=== PATIENT | female | born 1960 | race Caucasian/White ===

== ENCOUNTER 2017-09-12 08:21 | Inpatient (IN) | payer MEDICARE, OTHER ==
[2017-09-12] MEDS ORDERED: 0.9 % SODIUM CHLORIDE 1,000 ML BAG IV ONE ×2 (08:25→09:17)
[2017-09-12] MEDS ORDERED: ONDANSETRON HCL IV 4 MG/2 ML VIAL IVP ONE ×3 (08:31→17:10)
[2017-09-12] MEDS ORDERED: LORAZEPAM 2 MG/ML VIAL IV ONE ×2 (08:31→09:43)
--- NOTE | 2017-09-12 08:31 | Emergency Department Record ---
History of Present Illness - General Stated Complaint: CONSTIPATION Time Seen by Provider: 09/12/17 08:24 Source: Patient, Family Mode of Arrival: Ambulatory Limitations: No limitations - History of Present Illness Initial Comments: 57 yo female presents with a concern about constipation for 2 days, she has rectal pressure and unable to urinate due to the symptoms. She states she has not had significant constipation in the past. Past surgical history included hysterectomy. Prior colonoscopy in the past was normal. No other acute changes recently in her health. She is on disability for anxiety currently. MD Complaint: Abdominal pain (constipation, no bowel movement 2 days) -: Days(s) (2) Location: Other (Rectal pressure) Radiation: Other (rectal lower abdomen) Severity: Severe Quality: Cramping Consistency: Constant Improves With: Nothing Worsens With: Nothing Context: Other Associated Symptoms: Denies other symptoms - Related Data Home Medications Medication Instructions Recorded Confirmed Last Taken Fluoxetine HCl [Prozac] 60 mg PO DAILY 09/12/17 09/12/17 1 Day Ago ~09/11/17 Lorazepam [Ativan] 1 - 2 mg PO PRN 09/12/17 Unknown Ondansetron HCl [Zofran] 8 mg PO ASDIR PRN 09/12/17 09/12/17 Unknown Allergies Allergy/AdvReac Type Severity Reaction Status Date / Time No Known Drug Allergies Allergy Verified 09/12/17 12:03 Review of Systems Constitutional: Denies: Chills, Fever, Malaise, Weakness Eyes: Denies: Eye discharge ENT: Denies: Congestion, Throat pain Respiratory: Denies: Cough Cardiovascular: Denies: Chest pain, Syncope Endocrine: Denies: Fatigue Gastrointestinal: Reports: Abdominal pain, Constipation. Denies: Hematemesis, Hematochezia, Nausea Genitourinary: Reports: Retention. Denies: Dysuria, Urgency Musculoskeletal: Denies: Arthralgia, Back pain, Joint swelling, Myalgia Skin: Denies: Bruising, Change in color, Rash Neurological: Denies: Confusion Psychiatric: Denies: Anxiety, Depression Hematological/Lymphatic: Denies: Blood Clots, Easy bleeding, Easy bruising, Swollen glands Physical Exam - General General Appearance: Alert, Oriented x3, Cooperative, No acute distress, Anxious (very anxious due to unable to void or bowel movement) Limitations: No limitations - Head Head exam: Atraumatic, Normal inspection - Eye Eye exam: Normal appearance. negative: Conjunctival injection - ENT ENT exam: Normal exam, Mucous membranes moist Ear exam: Normal external inspection Nasal Exam: Normal inspection Mouth exam: Normal external inspection Teeth exam: Normal inspection - Neck Neck exam: Normal inspection - Respiratory Respiratory exam: Normal lung sounds bilaterally. negative: Respiratory distress - Cardiovascular Cardiovascular Exam: Regular rate, Normal rhythm, Normal heart sounds - GI/Abdominal GI/Abdominal exam: Soft. negative: Tenderness - Rectal Rectal exam: Fecal impaction (copious soft stool), Heme (-) stool, Hemorrhoids ( no bleeding), Normal rectal tone. negative: Black stool, Bloody stool, Decreased rectal tone, Heme (+) stool, Mass, Normal inspection - exam: Deferred - Extremities Extremities exam: Normal inspection, Full ROM, Normal capillary refill. negative: Tenderness - Back Back exam: Reports: Normal inspection, Full ROM. Denies: Muscle spasm, Rash noted, Tenderness - Neurological Neurological exam: Alert, Normal gait, Oriented X3. negative: Altered - Psychiatric Psychiatric exam: Agitated, Anxious - Skin Skin exam: Dry, Intact, Normal color, Warm Course - Reevaluation(s) Reevaluation #1: Due to pain and unable to urinate or have a bowel movement the patient is very anxious, tearful. She admits to significant history of anxiety. 09/12/17 08:30 She reports the symptoms were mild yesterday and much worse this morning unable to urinate or have a bowel movement. No blood. No fevers. No vomiting. 09/12/17 09:10 The mott was placed and is draining CT ordered given her level of pain, this being the first time this has happen, and the urinary retention. I explained this to the patient and her . 09/12/17 09:35 09/12/17 10:10 The UA and Lipase are negative 09/12/17 11:[address] scan was reviewed. Stool in the colon causing rectal distention with colon wall thickening and possible small amount of air in the colon wall representing a stercoral colitis. No signs of obstruction. Given the inflamed colon no enema will be given. She will be given PO Magnesium Citrate with Dulcolax Tab after discussion with GI. 09/12/17 11:28 09/12/17 12:16 It has been about one hour. No urge for bowel movement but she still has intense rectal pressure. I attempted to perform a digital dis impaction. She did not tolerate even a minimal examination due to pain refusing further attempts. 09/12/17 12:46 No BM at this point. GI recommends GoLytely. Will also give her lidocaine topical for anal pain. She will be admitted observation until she has bowel movements. She will be monitored for fever, vomiting, elevated WBC count. 09/12/17 13:24 I PERRI Franz of the admission service, we discussed the CT and plan for supportive care until BM and improved. 09/12/17 13:28 At the time of admission the abdomen is very soft. No acute abdomen findings. Her pain is lower. The lidocaine gel helped with the discomfort at the anus Medical Decision Making - Lab Data Result diagrams: 09/12/17 08:30 09/12/17 08:30 Disposition Disposition: Admit Clinical Impression: Urinary retention, Stercoral ulcer of rectum Constipation Qualifiers: Constipation type: unspecified constipation type Qualified Code(s): K59.00 - Constipation, unspecified Disposition: Still a Patient at [facility] Decision to Admit: Admit from ER Decision to Admit Date: 09/12/17 Decision to Admit Time: 12:48 Condition: (2) Stable Time of Disposition: 12:48 Quality - Quality Measures Quality Measures: N/A - Blood Pressure Screening Does Patient Have Any of the Following: No Blood Pressure Classification: Hypertensive Reading Systolic Measurement: 146 Diastolic Measurement: 118 Screening for High Blood Pressure: < Pre-Hypertensive BP, F/U Documented > [ G8950] Pre-Hypertensive Follow-up Interventions: Referral to alternative/primary care provider.
[2017-09-12 08:39] LABS: BASO % 0.3 % (0-6); EOS % 1.3 % (0-6); GRAN % 70.1 % (47-80); HEMATOCRIT 42.9 % (35.0-47.0); HEMOGLOBIN 14.3 gm/dl (11.6-16.0); LYMPH % 24.1 % (16-45); MEAN CELL VOLUME 88.3 fl (81-97); MEAN CORPUSCULAR HEMOGLOBIN 29.4 pg (27-33); MEAN CORPUSCULAR HGB CONC 33.3 g/dl (32-36); MEAN PLATELET VOLUME 9.9 fl (7.4-10.4); MONO % 4.2 % (0-9); PLATELET COUNT 389 K/uL (130-400); RED BLOOD COUNT 4.86 M/uL (3.80-5.40); RED CELL DISTRIBUTION WIDTH 13.9 % (11.5-14.5); WHITE BLOOD COUNT W/O DIFF 12.4 K/uL (4.2-12.2)
[2017-09-12 08:55] LABS: BLOOD UREA NITROGEN 18 mg/dL (6-20); CREATININE 0.7 mg/dL (0.5-0.9); EST GLOMERULAR FILTRATION RATE > 60 mL/min
[2017-09-12 08:58] LABS: GLUCOSE,RANDOM 164 mg/dL (74-109)
[2017-09-12 09:03] LABS: INR 0.94; PARTIAL THROMBOPLASTIN TIME 23.8 SECONDS (24.5-39.1); PROTHROMBIN TIME (PATIENT) 10.1 SECONDS (9.5-12.1)
[2017-09-12] MEDS ORDERED: FENTANYL PF 100MCG/2ML VIAL IVP ONE (09:17)
[2017-09-12 09:28] LABS: URINE APPEARANCE CLEAR; URINE BILIRUBIN NEGATIVE (NEGATIVE); URINE BLOOD SMALL (NEGATIVE); URINE COLOR YELLOW; URINE GLUCOSE (UA) NEGATIVE (NEGATIVE); URINE KETONE TRACE (NEGATIVE); URINE LEUKOCYTE ESTERASE NEGATIVE (NEGATIVE); URINE NITRITE NEGATIVE (NEGATIVE); URINE PROTEIN NEGATIVE (NEGATIVE); URINE UROBILINOGEN 0.2 E.U./dL (0.20 - 1.00)
[2017-09-12 09:37] LABS: URINE WBC NONE SEEN (0-2/hpf)
[2017-09-12] MEDS ORDERED: BISACODYL 5 MG TABLET PO ONE (11:04)
[2017-09-12] MEDS ORDERED: MAGNESIUM CITRATE 296 ML BTL PO ONE (11:04)
[2017-09-12] MEDS ORDERED: 0.9 % SODIUM CHLORIDE 1000ML 1,000 ML IV ONE (12:21)
[2017-09-12] MEDS ORDERED: LIDOCAINE UROJECT 10 ML APPL MM ONE (12:46)
[2017-09-12] MEDS ORDERED: 0.9 % SODIUM CHLORIDE 1000ML 1,000 ML IV PRN (14:39)
[2017-09-12] MEDS ORDERED: ACETAMINOPHEN 1,000 MG/100 ML BTL IVPB ONE (14:39)
[2017-09-12] MEDS ORDERED: SODSULF/SOD/NAHCO3/KCL/PEG (GOLYTELY) 4000 ML BTL PO STA (14:39)
[2017-09-12] MEDS ORDERED: LORAZEPAM 2 MG/ML VIAL IV PRN (14:39)
[2017-09-12] MEDS ORDERED: LIDOCAINE UROJECT 10 ML APPL MM PRN (14:39)
[2017-09-12 15:10] LABS: HEMOGLOBIN 12.5 gm/dl (11.6-16.0); MEAN CELL VOLUME 89.2 fl (81-97); MEAN CORPUSCULAR HEMOGLOBIN 29.3 pg (27-33); MEAN CORPUSCULAR HGB CONC 32.9 g/dl (32-36); MEAN PLATELET VOLUME 9.9 fl (7.4-10.4); PLATELET COUNT 298 K/uL (130-400); RED BLOOD COUNT 4.26 M/uL (3.80-5.40); RED CELL DISTRIBUTION WIDTH 13.8 % (11.5-14.5); WHITE BLOOD COUNT W/O DIFF 17.2 K/uL (4.2-12.2)
[2017-09-12 15:28] LABS: PLATELET ESTIMATE NORMAL (NORMAL)
--- NOTE | 2017-09-12 15:32 | History & Physical ---
History of Present Illness - Date of Service Date of Service for History & Physical: 09/12/17 - History of Present Illness History of Present Illness: Mrs. Reyes is a 57 year-old female who presented to the ED with concern of constipation for 2 days. She has rectal pain and pressure and she has been unable to urinate today due to her symptoms. She denies blood, fevers, and vomiting. She states that she normally has a daily bm and she has no history of similar symptoms or constipation. Past surgical history included hysterectomy and hemorrhoidectomy. Prior colonoscopy in the past was normal. No other acute changes recently in her health. She is on disability for anxiety currently. In ED, pt. was very anxious and tearful due to inability to urinate or have a bowel movement. A UA was obtained and negative. Lipase was negative. A mott was placed and draining well. Abdominal CT showed stool in the colon causing rectal distention with colon wall thickening and possible small amount of air in the colon wall representing a stercoral colitis. No signs of obstruction. Dr. Sheppard consulted with GI and and began PO magnesium citrate and dulcolax. A rectal exam was attempted but was too painful for the patient. GI recommended GoLytely. She was admitted for observation until she has bowel movements. She will be monitored for fever, vomiting, elevated WBC count. 09/12/17 1600: Pt. just got back in bed after having a small bowel movement of loose stool. She states that her pain is worsening and mainly in her lower abdomen and rectal area. She also states that the pain is making her anxiety worse. Plan to continue golytely, monitor lab results, and consult GI regarding worsening abdominal pain. Travel Screening - Travel/Exposure Within Last 30 Days Have you traveled within the last 30 days?: No - Additonal Travel Details Have you been exposed to anyone with a communicable illness?: No - Travel Symptoms Symptom Screening: None Review of Systems Constitutional: Denies: Chills, Fever, Malaise, Weakness Eyes: Denies: Eye discharge ENT: Denies: Congestion, Throat pain Respiratory: Denies: Cough Cardiovascular: Denies: Chest pain, Syncope Endocrine: Denies: Fatigue Gastrointestinal: Reports: Abdominal pain, Constipation, Other (Rectal pain). Denies: Hematemesis, Hematochezia, Nausea Genitourinary: Reports: Retention. Denies: Dysuria, Urgency Musculoskeletal: Denies: Arthralgia, Back pain, Joint swelling, Myalgia Skin: Denies: Bruising, Change in color, Rash Neurological: Denies: Confusion Psychiatric: Reports: Anxiety. Denies: Depression Hematological/Lymphatic: Denies: Blood Clots, Easy bleeding, Easy bruising, Swollen glands Past Medical History - SOCIAL HISTORY Smoking Status: Never smoker Alcohol Use: Rare Drug Use: None - RESPIRATORY Hx Respiratory Disorders: No - CARDIOVASCULAR Hx Cardio Disorders: No - NEURO Hx Neuro Disorders: No - GI Hx GI Disorders: Yes Hx Reflux: Yes Comment:: Hx hemorrhoidectomy - Hx Genitourinary Disorders: No - ENDOCRINE Hx Endocrine Disorders: No Hx Diabetes: No - MUSCULOSKELETAL Hx Musculoskeletal Disorders: No - PSYCH Hx Psych Problems: Yes Hx Anxiety: Yes - HEMATOLOGY/ONCOLOGY Hx Hematology/Oncology Disorders: No Family Medical History Any Significant Family History?: No H&P Meds/Allergies - Allergies Allergies: Allergies Allergy/AdvReac Type Severity Reaction Status Date / Time No Known Drug Allergies Allergy Verified 09/12/17 12:03 - Home Medications Home Medications Medication Instructions Recorded Confirmed Last Taken Fluoxetine HCl [Prozac] 60 mg PO DAILY 09/12/17 09/12/17 1 Day Ago ~09/11/17 Lorazepam [Ativan] 1 - 2 mg PO PRN 09/12/17 Unknown Ondansetron HCl [Zofran] 8 mg PO ASDIR PRN 09/12/17 09/12/17 Unknown - Active Medications Active Medications: Current Medications Sodium Chloride () 1,000 mls @ 125 mls/hr IV .Q8H PRN PRN Reason: LARGE VOLUME IV Last Admin: 09/12/17 15:26 Dose: 125 mls/hr Lidocaine HCl (Urojet) 10 ml MM Q6H PRN PRN Reason: Analgesia Lorazepam (Ativan) 1 mg IV Q8H PRN PRN Reason: ANXIETY Physical Exam - Vital Signs Vital Signs: Vital Signs - Last 24 Hrs Temp Pulse Resp BP Pulse Ox 09/12/17 14:51 99.2 F 75 20 146/79 96 - General General Appearance: Alert, Oriented x3, Cooperative, Moderate distress, Anxious (very anxious due to unable to void or bowel movement) Limitations: No limitations - Head Head exam: Atraumatic, Normal inspection - Eye Eye exam: Normal appearance. negative: Conjunctival injection - ENT ENT exam: Normal exam, Mucous membranes moist Ear exam: Normal external inspection Nasal Exam: Normal inspection Mouth exam: Normal external inspection Teeth exam: Normal inspection - Neck Neck exam: Normal inspection - Respiratory Respiratory exam: Normal lung sounds bilaterally. negative: Respiratory distress - Cardiovascular Cardiovascular Exam: Regular rate, Normal rhythm, Normal heart sounds - GI/Abdominal GI/Abdominal exam: Soft, Normal bowel sounds, Tenderness (with light palpation, worse in lower abdomen) - Rectal Rectal exam: Deferred. negative: Black stool, Bloody stool, Decreased rectal tone, Heme (+) stool, Mass, Normal inspection - exam: Deferred - Extremities Extremities exam: Normal inspection, Full ROM, Normal capillary refill. negative: Tenderness - Back Back exam: Reports: Normal inspection, Full ROM. Denies: Muscle spasm, Rash noted, Tenderness - Neurological Neurological exam: Alert, Normal gait, Oriented X3. negative: Altered - Psychiatric Psychiatric exam: Agitated, Anxious - Skin Skin exam: Dry, Intact, Normal color, Warm Results - Labs Result Diagrams: 09/12/17 14:52 09/12/17 14:52 Labs Last 24 Hours: Laboratory Results - last 24 hr 09/12/17 14:52 WBC 17.2 H RBC 4.26 Hgb 12.5 Hct 38.0 MCV 89.2 MCH 29.3 MCHC 32.9 RDW 13.8 Plt Count 298 MPV 9.9 Neutrophils % 90.0 H Band Neutrophils % 1.0 Eosinophils % Not Reportable Basophils % Not Reportable Lymphocytes 6.0 L Monocytes 2.0 Platelet Estimate Normal RBC Morphology Normal Eosinophil Count 1.0 VTE H&P Assessment - Risk for VTE Risk for VTE: No Risk Level: Very Low Risk Assessment Date: 09/12/17 Risk Assessment Time: 18:43 VTE Orders Placed or Will Be Placed: No VTE Reason for No Prophylaxis: Treatment Not Tolerated Plan - Inpatient Certification Inpatient Certification: Admit to inpatient care: Based on my medical assessment, after consideration of patient's risk factors (age, co-morbidities and patient presenting symptoms and acuity), I expect that this patient will remain in the hospital greater than or equal to two midnights and that the services needed warrant inpatient care because: Patient Risk Factors: [] Estimated length of stay: [] The patient may reasonably be expected to be discharged or transferred to a hospital within 96 hours after admission to [facility]. Services needed: [pain management, lab monitoring, monitoring of condition for possible acute bowel perforation] Post hospital care (if known): [] I certify that my determination is in accordance with my understanding of Medicare requirements for reasonable and necessary inpatient services. 09/12/17 18:18 - Detailed Diagnosis and Plan (1) Constipation Current Visit: Yes Status: Acute Qualifiers: Constipation type: unspecified constipation type Qualified Code(s): K59.00 - Constipation, unspecified Base Code: K59.00 - CONSTIPATION, UNSPECIFIED Comment: 09/12/17 1600: Pt. presented to ED on 09/12 with severe lower abd. pain and rectal pain after not having a bm in [address] showed dilated rectum with stool present. General surgery consulted by Dr. Sheppard. Planning conservative treatment. Mag citrate 150ml and dulcolax 5mg given. Ofirmev 1000mg IV and Lidocaine urojet used topically for anal pain. Golytely started. Pt. has has small amt. of liquid stool. Plan to continue golytely until substansial bowel movement. (2) Anxiety Current Visit: Yes Status: Acute Base Code: F41.9 - ANXIETY DISORDER, UNSPECIFIED Comment: 09/12/17 1600: Pt. has history of anxiety and normally takes prozac and ativan. Anxiety currently elevated secondary to pain of constipation condition. Plan to continue ativan 1mg prn tid. (3) Urinary retention Current Visit: Yes Status: Acute Base Code: R33.9 - RETENTION OF URINE, UNSPECIFIED Comment: 09/12/17: Pt. was unable to void upon presentation to ED. Mott catheter placed and remains patent. (4) Full code status Current Visit: Yes Status: Acute Base Code: Z78.9 - OTHER SPECIFIED HEALTH STATUS Comment: 09/12/17: Pt. is full code status
[2017-09-12 16:46] LABS: ALB/GLOB RATIO 1.5 (1.1-1.8); ALKALINE PHOSPHATASE 103 U/L (35-104); ALT/SGPT 14 U/L (<33); AST/SGOT 18 U/L (10.0-35.0); BLOOD UREA NITROGEN 12 mg/dL (6-20); CREATININE 0.6 mg/dL (0.5-0.9); EST GLOMERULAR FILTRATION RATE > 60 mL/min; GLUCOSE,RANDOM 113 mg/dL (74-109); TOTAL PROTEIN 6.7 g/dL (6.6-8.7)
--- NOTE | 2017-09-12 18:55 | Discharge Summary ---
Providers Date of admission: 09/12/17 14:31 Attending physician: Riccardo Abraham Primary care physician: TALON HOUSE D.O. Physical Exam - Vital Signs Vital Signs: Vital Signs - Last 24 Hrs Temp Pulse Resp BP Pulse Ox 09/12/17 14:51 99.2 F 75 20 146/79 96 - General General Appearance: Alert, Oriented x3, Cooperative, Moderate distress, Anxious (very anxious due to unable to void or bowel movement) Limitations: No limitations - Head Head exam: Atraumatic, Normal inspection - Eye Eye exam: Normal appearance. negative: Conjunctival injection - ENT ENT exam: Normal exam, Mucous membranes moist Ear exam: Normal external inspection Nasal Exam: Normal inspection Mouth exam: Normal external inspection Teeth exam: Normal inspection - Neck Neck exam: Normal inspection - Respiratory Respiratory exam: Normal lung sounds bilaterally. negative: Respiratory distress - Cardiovascular Cardiovascular Exam: Regular rate, Normal rhythm, Normal heart sounds - GI/Abdominal GI/Abdominal exam: Soft, Normal bowel sounds, Tenderness (with light palpation, worse in lower abdomen) - Rectal Rectal exam: Deferred. negative: Black stool, Bloody stool, Decreased rectal tone, Heme (+) stool, Mass, Normal inspection - exam: Deferred - Extremities Extremities exam: Normal inspection, Full ROM, Normal capillary refill. negative: Tenderness - Back Back exam: Reports: Normal inspection, Full ROM. Denies: Muscle spasm, Rash noted, Tenderness - Neurological Neurological exam: Alert, Normal gait, Oriented X3. negative: Altered - Psychiatric Psychiatric exam: Agitated, Anxious - Skin Skin exam: Dry, Intact, Normal color, Warm Hospitalization - Hospitalization Admission Diagnosis: Constipation, urinary retention, anxiety - Problem List/Discharge Diagnosis (1) Constipation Current Visit: Yes Status: Acute Discharge Diagnosis: Constipation type: unspecified constipation type Qualified Code(s): K59.00 - Constipation, unspecified Base Code: K59.00 - CONSTIPATION, UNSPECIFIED Comment: 09/12/17 1730: WBC increased from 12.4 to 17.2 and pt. temp now 99.2F (after ofirmev 1000mg). Per Dr. Sheppard, pt.'s abdomen was nontender in ED. Pt. now has increased abd. tenderness with palpation, worse in lower abdomen. General surgery consulted and plan to transfer to [facility]. Dr. Schilling will accept care and monitor for possible need of surgical intervention. (2) Anxiety Current Visit: Yes Status: Acute Base Code: F41.9 - ANXIETY DISORDER, UNSPECIFIED Comment: 09/12/17 1600: Pt. has history of anxiety and normally takes prozac and ativan. Anxiety currently elevated secondary to pain of constipation condition. Plan to continue ativan 1mg prn tid. (3) Urinary retention Current Visit: Yes Status: Acute Base Code: R33.9 - RETENTION OF URINE, UNSPECIFIED Comment: 09/12/17: Pt. was unable to void upon presentation to ED. Mott catheter placed and remains patent. (4) Full code status Current Visit: Yes Status: Acute Base Code: Z78.9 - OTHER SPECIFIED HEALTH STATUS Comment: 09/12/17: Pt. is full code status - Hospitalization Course Disposition: Acute Care Hospital Transfer Hospital Course: Mrs. Reyes is a 57 year-old female who presented to the ED with concern of constipation for 2 days. She has rectal pain and pressure and she has been unable to urinate today due to her symptoms. She denies blood, fevers, and vomiting. She states that she normally has a daily bm and she has no history of similar symptoms or constipation. Past surgical history included hysterectomy and hemorrhoidectomy. Prior colonoscopy in the past was normal. No other acute changes recently in her health. She is on disability for anxiety currently. In ED, pt. was very anxious and tearful due to inability to urinate or have a bowel movement. A UA was obtained and negative. Lipase was negative. A mott was placed and draining well. Abdominal CT showed stool in the colon causing rectal distention with colon wall thickening and possible small amount of air in the colon wall representing a stercoral colitis. No signs of obstruction. Dr. Sheppard consulted with GI and and began PO magnesium citrate and dulcolax. A rectal exam was attempted but was too painful for the patient. GI recommended GoLytely. She was admitted for observation until she has bowel movements. She will be monitored for fever, vomiting, elevated WBC count. 09/12/17 1600: Pt. just got back in bed after having a small bowel movement of loose stool. She states that her pain is worsening and mainly in her lower abdomen and rectal area. She also states that the pain is making her anxiety worse. Plan to continue golytely, monitor lab results, and consult GI regarding worsening abdominal pain. 09/12/17 1730: Per nursing staff, pt's pain is worsening. WBC increased from 12.4 to 17.2 and pt. temp 99.2F (after administration of ofirmev 1000mg). Unable to physically assess pt. at this time. General surgery consulted regarding pt's condition and increased WBCs, possible perforation and potential for surgical intervention. Dr. Schilling will accept pt. at [facility] and assume care. Abnormal Labs: Abnormal Lab Results 09/12/17 09/12/17 Range/Units 14:52 14:52 WBC 17.2 H (4.2-12.2) K/uL Neutrophils % 90.0 H (47-80) % Lymphocytes 6.0 L (16-45) % Random Glucose 113 H (74-109) mg/dL Calcium 8.5 L (8.6-10.0) mg/dL Condition at Discharge: (2) Stable VTE Discharge VTE Reason For No Overlap Therapy: Not Indicated Discharge Medications - Discharge Medications Home Medications: Ambulatory Orders Fluoxetine HCl [Prozac] 60 mg PO DAILY 09/12/17 [Last Taken 1 Day Ago ~09/11/17] Lorazepam [Ativan] 1 - 2 mg PO PRN 09/12/17 [Last Taken Unknown] Ondansetron HCl [Zofran] 8 mg PO ASDIR PRN 09/12/17 [Last Taken Unknown] Discharge Plan - Discharge Instructions Activity at Discharge: Increase Activity as Tolerated Diet at Discharge: Regular Diet Quality Measures - Quality Measures Quality Measures: Documentation of Current Medications in Medical Record, Screening for High Blood Pressure and F/U Documented - Current Medications Quality Measure: Measure #130: Documentation of Current Medications Documentation of Current Medications: <Current Medications Documented/Reviewed> [G8427] - Blood Pressure Screening Quality Measure: Screening for High Blood Pressure and Follow-Up Documented Does Patient Have Any of the Following: No Blood Pressure Classification: Hypertensive Reading Systolic Measurement: 146 Diastolic Measurement: 79 Screening for High Blood Pressure: < Pre-Hypertensive BP, F/U Documented > [ G8950] Pre-Hypertensive Follow-up Interventions: Follow-up with rescreen every year., Lifestyle modifications., Referral to alternative/primary care provider. Lifestyle Modification: Weight Reduction, Increased Physical Activity - Elder Abuse Suspicion Index EASI Reference Information: Miko DURAN, True Lopez, Nilo Alex, Monique Monroy.Development and validation of a tool to assist physicians identification of elder abuse: The Elder Abuse Suspicion Index (EASI ). Journal of Elder Abuse and Neglect, 2008; 20 (3): 276-300.
[2017-09-12] MEDS ORDERED: ERTAPENEM SODIUM 1 G in 0.9 % SODIUM CHLORIDE 100ML 100 ML IVPB ONE (18:58)
--- NOTE | 2017-09-13 07:32 | CT SCAN REPORT ---
EXAM: EMERGENCY CT OF THE ABDOMEN AND PELVIS WITH CONTRAST HISTORY: SEVERE LOWER ABDOMINAL PAIN, URINARY RETENTION, CONSTIPATION. HYSTERECTOMY. TECHNIQUE: Axial CT scan of the abdomen and pelvis was performed following the intravenous administration of 100 ml of Omnipaque 300 as the IV contrast. No oral contrast was utilized at the referring physician's request. Comparison: None. FINDINGS: No calcified gallstones are seen within the gallbladder. Small hiatal hernia. No definite hepatic, splenic, adrenal, pancreatic, or renal mass identified. The uterus is not identified consistent with the surgical history. Llamas catheter within the urinary bladder. There is prominent distention of the rectum with stool. In addition there is some mild thickening of the wall of the rectum possibly even with some air in the wall and findings may reflect a stercoral colitis. Clinical correlation is suggested. There is mild diverticulosis left side of the colon, but no diverticulitis evident. The appendix is visualized and appears negative. Overall evaluation of the bowel is somewhat limited without oral contrast. Very small periumbilical anterior abdominal wall hernia containing adipose tissue, but no bowel. No free intraperitoneal air or free intraperitoneal fluid evident. Degenerative change in the facets of the lower lumbar spine. Degenerative disk disease at multiple levels as well. Lumbar levoscoliosis. IMPRESSION: 1. MILD DIVERTICULOSIS LEFT SIDE OF THE COLON, BUT NO DIVERTICULITIS EVIDENT. 2. THE RECTUM IS QUITE DISTENDED WITH STOOL AND THERE IS SOME THICKENING OF THE WALL OF THE RECTUM POSSIBLY EVEN WITH A SMALL AMOUNT OF AIR IN THE WALL AND CLINICAL CORRELATION TO STERCORAL COLITIS IS SUGGESTED. 3. DEGENERATIVE CHANGE IN THE SPINE WITH A LUMBAR LEVOSCOLIOSIS. 4. LLAMAS CATHETER IN PLACE. 5. SMALL PERIUMBILICAL ANTERIOR ABDOMINAL WALL HERNIA CONTAINING ADIPOSE TISSUE , BUT NO BOWEL. 6. SMALL HIATAL HERNIA. [facility]BER: [id number] [facility]
== END 2017-09-12 19:30 | disposition short-term general hospital (02) | DRG 392 ==
LOC: ER 08:21 → MEDSURG 14:31
PROVIDERS: ADMIT Internal Medicine; ATTEND Internal Medicine
DX: K59.00 Constipation, unspecified (principal); F41.9 Anxiety disorder, unspecified; R33.9 Retention of urine, unspecified; K52.89 Other specified noninfective gastroenteritis and colitis; K56.41 Fecal impaction; K63.89 Other specified diseases of intestine; R33.8 Other retention of urine
CPT/HCPCS: 83690; 85025; 85730; 85610; 80048; 81001; 74177; 51702; Q9967; J2405 ×2; J3010; J2060 ×2; 80053; 85027; 96374; 96375; 96376; 99236; 99285; J7030